=== PATIENT | male | born 1980 | race Caucasian/White ===

== ENCOUNTER 2017-05-02 22:52 | Emergency (ER) | payer OTHER ==
[~2017-05-02] VITALS: Ht 185.4 cm; Wt 195.7 kg
[~2017-05-02 22:52] MED LIST: AMLODIPINE-BEN1 EACH; CLONIDINE HCL0.2 MG; FUROSEMIDE40 MG; METFORMIN HCL500 MG; METOPROLOL SUC200 MG; NOHOMEMEDS; SIMVASTATIN20 MG
[2017-05-03] MEDS ORDERED: NORCO 5/3251 TABLET PO (00:36)
[2017-05-03 01:13] VITALS: BP 144/79
== END 2017-05-03 01:34 | disposition home or self-care (01) ==
LOC: EME 22:52
DX: S93.401A Sprain of unspecified ligament of right ankle, initial encounter (principal); M19.072 Primary osteoarthritis, left ankle and foot; M19.071 Primary osteoarthritis, right ankle and foot; I10 Essential (primary) hypertension; E11.9 Type 2 diabetes mellitus without complications; G47.30 Sleep apnea, unspecified; H54.7 Unspecified visual loss; Z79.84 Long term (current) use of oral hypoglycemic drugs
CPT/HCPCS: 73610; 99281; 99284

== ENCOUNTER 2017-07-16 12:28 | Emergency (ER) | payer OTHER ==
[~2017-07-16] VITALS: Ht 182.9 cm; Wt 191.6 kg
[~2017-07-16 12:28] MED LIST changes: +NORCO 5/3251 TABLET PO
[2017-07-16] MEDS ORDERED: NORCO 5/3251 TABLET PO (13:57)
[2017-07-16] MEDS ORDERED: ZANAFLEX2 M1 PO (13:57)
[2017-07-16 14:15] VITALS: BP 118/68
== END 2017-07-16 14:16 | disposition home or self-care (01) ==
LOC: EME 12:28
DX: S39.012A Strain of muscle, fascia and tendon of lower back, initial encounter (principal); R00.2 Palpitations; E11.9 Type 2 diabetes mellitus without complications; I10 Essential (primary) hypertension; G47.30 Sleep apnea, unspecified; Z79.84 Long term (current) use of oral hypoglycemic drugs
CPT/HCPCS: 93005; 99281; 99283

== ENCOUNTER → 2017-08-22 | Outpatient (CLI) | payer OTHER ==
[~2017-08-22] MED LIST changes: +ZANAFLEX2 M1 PO
== END | disposition home or self-care (01) ==
LOC: EKG 13:59
DX: I51.7 Cardiomegaly (principal); I05.1 Rheumatic mitral insufficiency; I07.1 Rheumatic tricuspid insufficiency; I27.20 Pulmonary hypertension, unspecified; R94.31 Abnormal electrocardiogram [ECG] [EKG]
CPT/HCPCS: 93306